=== PATIENT | female | born 1980 | race Caucasian/White ===

== ENCOUNTER 2016-02-20 12:14 | Emergency (ER) | payer BC, MEDICARE, MEDICAID ==
[2016-02-20] MEDS ORDERED: SODIUM CHLORIDE 0.9% 1,000 ML ONE (12:32)
[2016-02-20 12:43] LABS: ABSOLUTE NEUTROPHIL COUNT 3.8 K/mm3 (1.8-7.7); BASO # 0.1 K/mm3 (0.0-0.2); BASO % 0.7 % (0.2-1.0); EOS # 0.1 (0.0-0.5); EOS % 1.9 % (0.9-2.9); HEMATOCRIT 41.6 % (37.0-47.0); HEMOGLOBIN 13.7 gm/l (12.0-16.0); IMM NEUT% 0.1 % (0-1); LYMPH % 30.4 % (15-45); MEAN CELL VOLUME 89.7 fl (81.0-99.0); MEAN CORPUSCULAR HEMOGLOBIN 29.5 pg (27.0-31.0); MEAN CORPUSCULAR HGB CONC 32.9 g/dl (33.0-37.0); MONO # 0.6 (0.0-0.8); MONO % 9.6 % (4-12); NEUT % 57.3 % (43-75); PLATELET COUNT 281 K/mm3 (130-400); RED CELL DISTRIBUTION WIDTH 12.1 % (11.5-14.5)
[2016-02-20 12:58] LABS: ALB/GLOB RATIO 1.8 (>1.0); ALBUMIN 4.4 gm/dL (3.5-5.7); CALCIUM 9.4 mg/dL (8.6-10.3); TROPONIN I < 0.01 ng/ml (0.0-0.06)
[2016-02-20 13:01] LABS: CKMB ISOENZYME 2.7 ng/ml (0.6-6.3)
== END 2016-02-20 13:53 | disposition home or self-care (01) ==
LOC: ED 12:14
DX: T23.032A Burn of unspecified degree of multiple left fingers (nail), not including thumb, initial encounter (principal); T31.0 Burns involving less than 10% of body surface; I47.1 Supraventricular tachycardia; W86.0XXA Exposure to domestic wiring and appliances, initial encounter; Y92.008 Other place in unspecified non-institutional (private) residence as the place of occurrence of the external cause